=== PATIENT | male | born 2000 | race Hispanic/Latino ===

== ENCOUNTER 2019-03-14 22:23 | Emergency (ER) | payer OTHER ==
[~2019-03-14] VITALS: Ht 165.1 cm; Wt 61.4 kg
[2019-03-14] MEDS ORDERED: LIDOCAINE W/EPINEPHRINE 1% 20ML VIAL SC STA (23:25)
[2019-03-14] MEDS ORDERED: LIDOCAINE W/EPINEPHRINE 1% 20ML VIAL As Ordered ONE (23:26)
[2019-03-15] MEDS ORDERED: DOXY100C37 PO (00:09)
[2019-03-15] MEDS ORDERED: DOXYCYCLINE HYCLATE 100 MG TAB PO ONE (00:15)
[2019-03-15 00:38] VITALS: BP 121/63
--- NOTE | 2019-03-15 09:45 | REP ---
Facial bone series: Seven views. History: DB and scan. Findings: No oval views of the face and mandible demonstrate an opaque BB in the para midline mental soft tissues just to the right of midline. No fracture is seen. Otherwise unremarkable. Electronically Signed by Franklin Reyes MD 03/15/2019 09:36 A
== END 2019-03-15 00:41 | disposition home or self-care (01) ==
LOC: M ED 22:23
DX: S00.85XA Superficial foreign body of other part of head, initial encounter (principal); W34.010A Accidental discharge of airgun, initial encounter; Y92.89 Other specified places as the place of occurrence of the external cause